=== PATIENT | male | born 1990 | race Caucasian/White ===

== ENCOUNTER 2024-07-18 08:30 | Emergency (ER) | payer BC ==
[~2024-07-18] VITALS: Ht 177.8 cm; Wt 92.2 kg
[~2024-07-18 08:30] MED LIST: HYDR1TAB PO; NO HOME MEDS
[2024-07-18 12:27] VITALS: BP 136/70; PULSE 78; RESP 16; TEMP 98.4; O2SAT 98
== END 2024-07-18 12:27 | disposition home or self-care (01) ==
LOC: ER 08:30
DX: S63.91XA Sprain of unspecified part of right wrist and hand, initial encounter (principal); W19.XXXA Unspecified fall, initial encounter; Y93.89 Activity, other specified; Y92.89 Other specified places as the place of occurrence of the external cause; Y99.8 Other external cause status
CPT/HCPCS: 73130; 99284